=== PATIENT | female | born 1935 | race Caucasian/White ===

== ENCOUNTER 2017-08-29 22:45 | Emergency (ER) | payer OTHER, MEDICAID ==
[~2017-08-29] VITALS: Ht 154.9 cm; Wt 55.0 kg
[2017-08-30 01:35] LABS: HEMATOCRIT. 41.7 % (36.0-48.0); HEMOGLOBIN. 13.4 g/dL (12.0-16.0); MEAN CORPUSCULAR HEMOGLOBIN 30.8 pg (28.0-32.0); MEAN CORPUSCULAR VOLUME 95.7 fL (81.0-99.0); MEAN PLATELET VOLUME 10.6 fl (7.4-10.4); RED BLOOD CELL COUNT 4.36 mill/uL (4.2-5.4); RED CELL DISTRIBUTION WIDTH 18.8 % (11.6-14.6)
[2017-08-30 01:51] LABS: PLATELET 41 x1000/uL (130-400)
[2017-08-30 03:52] VITALS: BP 115/59
[2017-08-30 09:47] LABS: NUCLEATED RED BLOOD CELLS 3 /100 WBC; PLATELET ESTIMATE MARKEDLY DECREASED
== END 2017-08-30 03:55 | disposition home or self-care (01) ==
LOC: ER 22:57
DX: R09.89 Other specified symptoms and signs involving the circulatory and respiratory systems (principal); I48.91 Unspecified atrial fibrillation; Z79.01 Long term (current) use of anticoagulants; E11.22 Type 2 diabetes mellitus with diabetic chronic kidney disease; Z88.0 Allergy status to penicillin; E78.00 Pure hypercholesterolemia, unspecified; I12.0 Hypertensive chronic kidney disease with stage 5 chronic kidney disease or end stage renal disease; N18.6 End stage renal disease; Z99.2 Dependence on renal dialysis
CPT/HCPCS: 36415; 71010; 80048; 85025; 93005; 99285